=== PATIENT | male | born 1980 | race Caucasian/White ===

== ENCOUNTER 2016-05-27 01:28 | Emergency (ER) | payer OTHER ==
[~2016-05-27] VITALS: Ht 188 cm; Wt 104.3 kg
[~2016-05-27 01:28] MED LIST: AMOXICILLIN 50500 M1 PO; TUSSIONEX PENN473 ML PO; VENTOLIN17 GM INH
[2016-05-27] MEDS ORDERED: ZYRTEC10 M4 PO (01:34)
[2016-05-27] MEDS ORDERED: PREDNISONE 20 M20 MG PO (02:49)
[2016-05-27] MEDS ORDERED: AZITHROMYCIN 2250 MG PO (02:49)
[2016-05-27 02:54] VITALS: BP 108/76
== END 2016-05-27 02:56 | disposition home or self-care (01) ==
LOC: ER 01:28
DX: J01.90 Acute sinusitis, unspecified (principal); Z88.6 Allergy status to analgesic agent; Z88.2 Allergy status to sulfonamides